=== PATIENT | male | born 1965 | race Two or more races ===

== ENCOUNTER 2019-01-31 20:54 | Emergency (ER) | payer OTHER ==
[~2019-01-31] VITALS: Ht 165.1 cm; Wt 78.2 kg
[2019-01-31 21:01] VITALS: BP 154/90
[2019-01-31] MEDS ORDERED: LIDOCAINE-MPF 1%, 5ML ONE (21:10)
--- NOTE | 2019-01-31 21:57 | NUR ---
Report to Ila Grover RN.
[2019-01-31] MEDS ORDERED: LIDOCAINE-MPF 1%, 5ML INFIL ONE (22:00)
[2019-01-31] MEDS ORDERED: OXYcodone/APAP 5/325MG TABLET ONE (22:27)
[2019-01-31] MEDS ORDERED: OXYcodone/APAP 5/325MG TABLET PO ONE (22:30)
[2019-01-31] MEDS ORDERED: BACITRACIN ZINC OINT 500U/GM, 0.9 GM ONE (23:20)
== END 2019-01-31 23:37 | disposition home or self-care (01) ==
LOC: ED 23:25
DX: S01.81XA Laceration without foreign body of other part of head, initial encounter (principal); S06.9X1A Unspecified intracranial injury with loss of consciousness of 30 minutes or less, initial encounter; W01.0XXA Fall on same level from slipping, tripping and stumbling without subsequent striking against object, initial encounter; Y93.89 Activity, other specified; Y92.009 Unspecified place in unspecified non-institutional (private) residence as the place of occurrence of the external cause; Y99.8 Other external cause status
CPT/HCPCS: 12013; 70450; 70486; 72072; 72125; 99284

== ENCOUNTER 2019-09-16 17:05 | Emergency (ER) | payer OTHER ==
[~2019-09-16] VITALS: Ht 165.1 cm; Wt 76.5 kg
[2019-09-16] MEDS ORDERED: LIDOCAINE-MPF 1%, 5ML INFIL ONE (18:00)
[2019-09-16] MEDS ORDERED: BUPIVACAINE/PF 0.5% INFIL ONE (18:00)
[2019-09-16] MEDS ORDERED: DIPH,PERTUSS(ACELL),TET VAC/PF 0.5 ML IM-VACC ONE ×2 (18:00→18:08)
[2019-09-16] MEDS ORDERED: LIDOCAINE-MPF 1%, 5ML ONE (18:08)
[2019-09-16] MEDS ORDERED: BUPIVACAINE 0.25% ONE (18:08)
[2019-09-16] MEDS ORDERED: BUPIVACAINE 0.25% INFIL ONE (18:30)
[2019-09-16 20:59] VITALS: BP 132/69
== END 2019-09-16 21:01 | disposition home or self-care (01) ==
LOC: ED 20:55
DX: S62.522B Displaced fracture of distal phalanx of left thumb, initial encounter for open fracture (principal); I10 Essential (primary) hypertension; W31.0XXA Contact with mining and earth-drilling machinery, initial encounter; Y93.89 Activity, other specified; Y92.69 Other specified industrial and construction area as the place of occurrence of the external cause; Y99.0 Civilian activity done for income or pay
CPT/HCPCS: 11760; 13131; 73140; 90471; 90715; 99285; J3490

== ENCOUNTER → 2020-08-24 | Outpatient (CLI) | payer OTHER ==
[~2020-08-24] MED LIST: ACET-1600 PO; ATOR40TA78 PO; CHOL10003 PO; FEXO1TAB29 PO; OMEP40CA42 PO; PROP15DR EACHEYE; SILD100T PO; sinex NS
== END | disposition home or self-care (01) ==
LOC: STAR 15:38
PROVIDERS: ATTEND Urology
DX: Z01.812 Encounter for preprocedural laboratory examination (principal); Z20.828 Contact with and (suspected) exposure to other viral communicable diseases; C61 Malignant neoplasm of prostate
CPT/HCPCS: 36415; 87635; 93005